=== PATIENT | male | born 2000 ===

== ENCOUNTER 2022-10-22 17:12 | Outpatient (REF) | payer OTHER, SELFPAY | END 2022-10-22 17:13 | disposition home or self-care (01) | LOC: HO.HOSX 17:12 | PROVIDERS: Visit Provider Physician Assistant | DX: Z13.89 Encounter for screening for other disorder (principal) ==

== ENCOUNTER 2022-11-27 16:40 | Outpatient (REF) | payer OTHER, SELFPAY | END 2022-11-27 16:41 | disposition home or self-care (01) | LOC: HO.HOSX 16:40 | PROVIDERS: Visit Provider Physician Assistant | DX: Z13.89 Encounter for screening for other disorder (principal) ==